=== PATIENT | female | born 1975 | race Caucasian/White ===

== ENCOUNTER 2017-05-09 15:51 | Emergency (ER) | payer OTHER ==
[~2017-05-09] VITALS: Ht 157.5 cm; Wt 49.9 kg
--- NOTE | 2017-05-09 16:22 | NUR ---
ER MD AT THE BEDSIDE FOR EVAL AND EXAM.
[2017-05-09] MEDS ORDERED: HYDROCODONE/APAP 5-325MG TABLET PO ONE (16:30)
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
[2017-05-09] MEDS ORDERED: CEFTRIAXONE 500 MG VIAL IM ONE (16:45)
[2017-05-09] MEDS ORDERED: DOXYCYCLINE HYCLATE 100 MG TABLET PO ONE (16:45)
[2017-05-09] MEDS ORDERED: HYDROCODONE/APAP 5-325MG TABLET ONE (16:48)
--- NOTE | 2017-05-09 16:56 | NUR ---
LORENA(FUNDER) AT THE BEDSIDE.
[2017-05-09] MEDS ORDERED: CEFTRIAXONE 500 MG VIAL ONE (17:00)
[2017-05-09] MEDS ORDERED: DOXYCYCLINE HYCLATE 100 MG TABLET ONE (17:00)
[2017-05-09] MEDS ORDERED: LIDOCAINE HCL 1% 20 ML VIAL ONE (17:00)
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
--- NOTE | 2017-05-09 17:09 | NUR ---
PT STATED, SHE DOSE NOT WANT TO TALK TO [employer] AND WISHES TO LEAVE.
[2017-05-09 17:11] VITALS: BP 110/81
--- NOTE | 2017-05-09 17:11 | NUR ---
Patient does not wish to proceed with medical care recommended by Dr. Hinton). Patient given information related to possible complications, up to and including , which could occur as a result of leaving the hospital at this time. Patient verbalizes understanding of risks involved due to leaving against medical advice. Patient has signed AMA form.
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
== END 2017-05-09 17:16 | disposition left against medical advice (07) ==
LOC: ER 15:52
DX: T74.11XA Adult physical abuse, confirmed, initial encounter (principal); R07.9 Chest pain, unspecified; R51 Headache; F32.9 Major depressive disorder, single episode, unspecified; Z59.0 Homelessness; Z88.8 Allergy status to other drugs, medicaments and biological substances; Y04.0XXA Assault by unarmed brawl or fight, initial encounter; Y93.89 Activity, other specified; Y92.89 Other specified places as the place of occurrence of the external cause; Y99.8 Other external cause status
CPT/HCPCS: 96372; 99283; A4663; J0696; J3490

== ENCOUNTER 2017-08-06 00:51 | Emergency (ER) | payer OTHER ==
[~2017-08-06] VITALS: Ht 157.5 cm; Wt 52.2 kg
[2017-08-06] MEDS ORDERED: ONDANSETRON ODT 4 MG TAB.RAPDIS SL ONE (02:00)
[2017-08-06] MEDS ORDERED: CEFTRIAXONE 500 MG VIAL IM ONE (02:00)
[2017-08-06] MEDS ORDERED: AZITHROMYCIN 250 MG TABLET PO ONE (02:00)
[2017-08-06] MEDS ORDERED: LIDOCAINE HCL 1% 20 ML VIAL ONE (02:10)
[2017-08-06] MEDS ORDERED: CEFTRIAXONE 500 MG VIAL ONE (02:11)
[2017-08-06] MEDS ORDERED: AZITHROMYCIN 250 MG TABLET ONE (02:11)
[2017-08-06] MEDS ORDERED: ONDANSETRON ODT 4 MG TAB.RAPDIS ONE (02:11)
[2017-08-06] MEDS ORDERED: IBUPROFEN 800 MG TABLET PO ONE (03:00)
[2017-08-06] MEDS ORDERED: IBUPROFEN 800 MG TABLET ONE (03:14)
[2017-08-06] MEDS ORDERED: HYDROCODONE/APAP 10-325 MG TABLET PO ONE (03:15)
[2017-08-06] MEDS ORDERED: HYDROCODONE/APAP 10-325 MG TABLET ONE (03:23)
--- NOTE | 2017-08-06 03:25 | NUR ---
Patient discharged to home in stable conditon. Written and verbal after care instructions given. Patient verbalizes understanding of instructions.
[2017-08-06 03:26] VITALS: BP 118/75
[2017-08-08 07:07] LABS: *GC NAA Negative (Negative); *TRIC.VAG. NAA Negative (Negative)
== END 2017-08-06 03:30 | disposition home or self-care (01) ==
LOC: ER 00:51
DX: M77.42 Metatarsalgia, left foot (principal); F15.10 Other stimulant abuse, uncomplicated; B19.20 Unspecified viral hepatitis C without hepatic coma; Z59.0 Homelessness; Z88.8 Allergy status to other drugs, medicaments and biological substances
CPT/HCPCS: 73560; 73630; 87491; 96372; 99285; A4663; J0696; J3490; Q0144; Q0162

== ENCOUNTER 2020-01-26 17:05 | Inpatient (IN) | payer SELFPAY ==
[~2020-01-26] VITALS: Ht 157.5 cm; Wt 71.7 kg
[2020-01-26] MEDS ORDERED: ONDANSETRON 4 MG/2 ML VIAL IV ONE (17:30)
[2020-01-26] MEDS ORDERED: IV NORMAL SALINE 1000 ML BAG IV ONE (17:30)
[2020-01-26] MEDS ORDERED: HYDROMORPHONE 1 MG/1 ML DISP.SYRIN IV ONE (17:30)
[2020-01-26] MEDS ORDERED: VANCOMYCIN IV 1,000 MG in IV DEXTROSE 5% 250 ML IV ONE (17:30)
[2020-01-26] MEDS ORDERED: HYDROMORPHONE 1 MG/1 ML DISP.SYRIN ONE (17:34)
[2020-01-26] MEDS ORDERED: VANCOMYCIN IV 200 ML ONE (17:34)
[2020-01-26] MEDS ORDERED: ONDANSETRON 4 MG/2 ML VIAL ONE (17:34)
--- NOTE | 2020-01-26 17:55 | NUR ---
PT is hard stick and LAB attempted to draw blood x3, pt uncooperative.
--- NOTE | 2020-01-26 18:00 | NUR ---
manufacturing quality technician able to draw blood, difficulty w/ blood CX, Dr Quintero discontinue blood CX, since pt not cooperative w/ care.
[2020-01-26 18:03] LABS: BASOPHILS % (AUTO) 0.2 % (0.0-2.0); EOSINOPHILS # (AUTO) 0.1 K/uL (0.0-0.7); EOSINOPHILS % (AUTO) 2.2 % (0.0-7.0); HEMATOCRIT 35.1 % (31.2-41.9); HEMOGLOBIN 11.6 g/dL (10.9-14.3); LYMPHOCYTES # (AUTO) 1.2 K/uL (20.0-40.0); LYMPHOCYTES % (AUTO) 17.9 % (20.5-51.5); MEAN CORPUSCULAR HEMOGLOBIN 31.3 uug (24.7-32.8); MEAN CORPUSCULAR HGB CONC 33 g/dL (32.3-35.6); MEAN CORPUSCULAR VOLUME 94.4 fL (75.5-95.3); MONOCYTES # (AUTO) 0.2 K/uL (2.0-10.0); MONOCYTES % (AUTO) 3.3 % (0.0-11.0); NEUTROPHILS % (AUTO) 76.4 % (38.5-71.5); PLATELET COUNT (AUTO) 282 K/uL (179-408); RED BLOOD CELL COUNT(AUTO) 3.71 MIL/uL (3.63-4.92); WHITE BLOOD COUNT (AUTO) 6.5 K/uL (3.8-11.8)
[2020-01-26 18:10] LABS: CREATININE 0.7 mg/dL (0.6-1.3); POTASSIUM 3.6 mmol/L (3.5-5.1)
[2020-01-26 18:16] LABS: BILIRUBIN,DIRECT 0.1 mg/dL (0.0-0.2); BILIRUBIN,TOTAL 0.1 mg/dL (0.2-1.0); TOTAL PROTEIN, SERUM 5.3 g/dL (6.4-8.2)
--- NOTE | 2020-01-26 19:01 | NUR ---
PT DENIES BEING ON ANY MEDS AT THE PRESENT TIME.
--- NOTE | 2020-01-26 19:20 | NUR ---
Assumed care for patient at this time. Noted with redness on upper extremities. Reported to MD that patient might be having allergic reaction.
[2020-01-26] MEDS ORDERED: diphenhydrAMINE 25 MG CAP PO ONE ×2 (19:30→19:32)
--- NOTE | 2020-01-26 19:50 | NUR ---
Redness noted, slowly improving at this time. Pt denies shortness of breath or difficulty of breathing.
--- NOTE | 2020-01-26 19:55 | NUR ---
Report given to Floor nurse/FIFI.
[2020-01-26] MEDS ORDERED: MAGNESIUM HYDROXIDE 30 ML LIQUID UDC PO PRN (20:15)
[2020-01-26] MEDS ORDERED: ACETAMINOPHEN 325 MG TABLET PO PRN (20:15)
[2020-01-26] MEDS ORDERED: ONDANSETRON 4 MG/2 ML VIAL IV PRN (20:15)
[2020-01-26] MEDS ORDERED: LORAZEPAM 2 MG/1 ML VIAL IV PRN (20:15)
--- NOTE | 2020-01-26 20:26 | NUR ---
Patient transported to [facility] floor, in stable condition via gurney.
[2020-01-26 20:30] VITALS: BP 108/69
--- NOTE | 2020-01-26 20:30 | NUR ---
Received patient alert and agitated. Patient shows no signs or symptoms of distress at this time. Patient agitated and is requesting for more pain medication and benedryl IV. Patient's vital signs stable- BP:108/69, Pulse:109, Respirations: 18, Temp: 98.5, O2- 100%. Dr. Lopez paged for orders. Awaiting response. Will continue to monitor patient.
--- NOTE | 2020-01-26 20:42 | NUR ---
PHARMACY NOTES ( VANCOMYCIN DOSING ) S: 44-year-old woman complaining of pain redness and swelling in the right hand. She claims that a "neighborhood dog" bit her 2 days ago and then the hand became progressively more painful red and swollen. MD ordered Vancomycin O: BUN/SCR 13/0.7, WBC 6.5, TEMP 98.2, T1/2 9.6 H, DOSING WT 72 KG A/P: pt received 1 dose of Vancomycin in ER @ 20:06 (dose # 1) will continue with Vancomycin 1 gm IVPB q11h , estimated peak of 35 trough of 17. Plan to order trough prior to 4th dose. Will continue to monitor renal fxn and levels when available and adjust dose if necessary.
[2020-01-26] MEDS: HYDROCODONE/APAP 5-325MG TABLET PO PRN (22:34)
[2020-01-26] MEDS: diphenhydrAMINE 50 MG/1 ML VIAL IV PRN (22:34)
--- NOTE | 2020-01-26 22:51 | NUR ---
Patient agitated and upset. Patient strongly refuses to do any sort of assessment. Patient states, "You're not a doctor so I don't have to talk to you. I will wait for the doctor in the morning." Explained risks and benefits and patient Addendum: 01/26/20 at 2327 by FIFI WELLS RN Patient still strongly refuses to have any assessment done. Will continue to monitor patient.
--- NOTE | 2020-01-26 23:00 | NUR ---
Pt refuses to have belongings checked. Explained to patient importance of having belongings checked but patient still strongly refuses at this time. Will continue to monitor patient.
--- NOTE | 2020-01-26 23:56 | NUR ---
Refuses assessment Addendum: 01/27/20 at 0037 by FIFI WELLS RN Amended: Links added.
--- NOTE | 2020-01-26 23:58 | NUR ---
Patient refuses all HEENT assessments. Addendum: 01/27/20 at 0037 by FIFI WELLS RN Amended: Links added.
--- NOTE | 2020-01-26 23:58 | NUR ---
Patient refuses assessment Addendum: 01/27/20 at 0037 by FIFI WELLS RN Amended: Links added.
--- NOTE | 2020-01-26 23:59 | NUR ---
Refuses skin assessment Addendum: 01/27/20 at 0037 by FIFI WELLS RN Amended: Links added.
--- NOTE | 2020-01-27 | NUR ---
Refuses auscultation of lungs Addendum: 01/27/20 at 0037 by FIFI WELLS RN Amended: Links added.
--- NOTE | 2020-01-27 00:01 | NUR ---
Refuses abdominal assessment. Addendum: 01/27/20 at 0037 by FIFI WELLS RN Amended: Links added.
--- NOTE | 2020-01-27 00:29 | NUR ---
Refuses to state support group Addendum: 01/27/20 at 0037 by FIFI WELLS RN Amended: Links added.
--- NOTE | 2020-01-27 00:33 | NUR ---
As per ED report, patient uses Heroin. During assessment, states states she does not abuse any substances. Addendum: 01/27/20 at 0037 by FIFI WELLS RN Amended: Links added.
[2020-01-27] MEDS: HYDROCODONE/APAP 5-325MG TABLET PO PRN ×2 (02:45→20:12)
[2020-01-27] MEDS: diphenhydrAMINE 50 MG/1 ML VIAL IV PRN (04:32)
[2020-01-27] MEDS: VANCOMYCIN IV 1,000 MG in IV DEXTROSE 5% 250 ML IV SCH ×2 (06:23→18:00)
[2020-01-27] MEDS ORDERED: PANTOPRAZOLE SODIUM 40 MG TABLET.DR PO SCH (07:00)
[2020-01-27 07:32] VITALS: BP 90/47
--- NOTE | 2020-01-27 07:38 | NUR ---
Patient shows no signs or symptoms of distress at this time. Patient is resting comfortably in bed. Patient endorsed to AM nurse in stable condition.
--- NOTE | 2020-01-27 09:00 | NUR ---
Refusing to keep saline lock in place. States burning feeling. Instructed that is because of saline flush. Refused to do belongings list. Requesting a different nurse. Instructed no assignment can be changed at this time. Very rude and abusive to staff.
--- NOTE | 2020-01-27 09:33 | NUR ---
PHARMACY NOTES ( VANCOMYCIN DOSING ) S: To continue vanco dosing for this 44-year-old woman complaining of pain redness and swelling in the right hand. She claims that a "neighborhood dog" bit her 2 days ago and then the hand became progressively more painful red and swollen. ordered Vancomycin O: BUN/SCR 13/0.7 (01/25), WBC 6.5 (01/25), TEMP 97.3 wt 72 kg ht 157 cm A/P: Will continue with Vancomycin 1 gm IVPB q11h for today. 2nd dose today at 1800. Plan to order trough prior to 4th dose (ordered for 01/27 at 1630). Pharmacy shall review the level when available & adjust the dose if needed. Will continue to monitor renal fxn and levels when available and adjust dose if necessary. Addendum: 01/27/20 at 0939 by ANTHONY DOW CORRECTION: TROUGH ORDERED ON 01/27 AT 1530
[2020-01-27 09:42] LABS: BASOPHILS % (AUTO) 0.2 % (0.0-2.0); EOSINOPHILS # (AUTO) 0.1 K/uL (0.0-0.7); EOSINOPHILS % (AUTO) 3.7 % (0.0-7.0); HEMATOCRIT 33.6 % (31.2-41.9); HEMOGLOBIN 10.9 g/dL (10.9-14.3); LYMPHOCYTES # (AUTO) 1.2 K/uL (20.0-40.0); LYMPHOCYTES % (AUTO) 31.9 % (20.5-51.5); MEAN CORPUSCULAR HEMOGLOBIN 30.6 uug (24.7-32.8); MEAN CORPUSCULAR HGB CONC 32 g/dL (32.3-35.6); MEAN CORPUSCULAR VOLUME 94.6 fL (75.5-95.3); MONOCYTES # (AUTO) 0.2 K/uL (2.0-10.0); MONOCYTES % (AUTO) 5.9 % (0.0-11.0); NEUTROPHILS # (AUTO) 2.3 K/uL (1.8-8.9); NEUTROPHILS % (AUTO) 58.3 % (38.5-71.5); PLATELET COUNT (AUTO) 266 K/uL (179-408); RED BLOOD CELL COUNT(AUTO) 3.55 MIL/uL (3.63-4.92); WHITE BLOOD COUNT (AUTO) 3.9 K/uL (3.8-11.8)
[2020-01-27 09:54] LABS: BILIRUBIN,TOTAL 0.2 mg/dL (0.2-1.0); CREATININE 0.7 mg/dL (0.6-1.3); MAGNESIUM 1.8 mg/dL (1.8-2.4); PHOSPHOROUS 3.7 mg/dL (2.5-4.9); POTASSIUM 3.8 mmol/L (3.5-5.1); TOTAL PROTEIN, SERUM 4.9 g/dL (6.4-8.2)
[2020-01-27 11:45] VITALS: BP 95/44
--- NOTE | 2020-01-27 12:00 | NUR ---
Patient dc'd her saline lock & threw it in the trash.
--- NOTE | 2020-01-27 14:30 | NUR ---
PATIENT REASSIGNMENT AT THIS TIME RECEIVED PATIENT IN BED AWAKE ALERT AND ORIENTED RIGHT HAND REMAINS SWOLLEN CONTINUE WITH ATB ORDERED NO S/S OF PAIN OR DISCOMFORTS AT THIS TIME CALL LIGHTS AND PERSONAL BELONGINGS ARE WITHIN EASY REACH MADE COMFORTABLE WILL CONTINUE TO OBSERVE
--- NOTE | 2020-01-27 17:10 | NUR ---
PATIENT HAS NO IV ACCESS AND INFORMED PATIENT THAT SHE NEEDED HEPLOCK INSERTED HER VANCO ATB WILL BE DUE AT 1800 BUT PATIENT BECAME ANGRY AND YELLING AT THIS WRITTER STATED THAT SHE DOES NOT THINK THAT I HAVE ENOUGH SKILLS TO INSERT HER IV VERY RUDE VERBALLY ABUSIVE AND INAPPROPRIATE MAKING IT IMPOSSIBLE TO REASON WITH HER SO I CALLED DEDRA DANIEL HIS PRACTITIONER AND LEFT HIM A MESSAGE THAT PATIENT HAS REFUSED TO HAVE HER HEPLOCK INSERTED AND SUCH I AM UNABLE TO GIVE HER THE VANCOMICIN ORDERED AWAITING FOR RETURN CALL.
[2020-01-27 17:19] VITALS: BP 98/50
--- NOTE | 2020-01-27 18:30 | NUR ---
SPOKE WITH DEDRA DANIEL STATED OKAY IF PATIENT REFUSES JUST DOCUMENT NO NEW ORDERS AT THIS TIME.
--- NOTE | 2020-01-27 19:45 | NUR ---
Received patient awake and agitated. Patient shows no signs or symptoms of distress at this time. Vital signs stable. Patient requesting for medication for breakthrough pain. Dr. Bandar Anderson notified. Awaiting response. Will continue to monitor patient.
--- NOTE | 2020-01-27 20:50 | NUR ---
Second message left with Dr. Anderson. Awaiting response.
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
--- NOTE | 2020-01-27 23:15 | NUR ---
[facility] medical group called and Dr. Savage is polymerization helper. Called and spoke to Dr. Savage and was notified that patient left AMA at 2039.
== END 2020-01-27 21:40 | disposition left against medical advice (07) | DRG 603 ==
LOC: ER 17:08 → MEDSURG3 20:07
PROVIDERS: ADMIT Hospitalist; ATTEND Hospitalist
DX: L03.113 Cellulitis of right upper limb (principal); E44.0 Moderate protein-calorie malnutrition; W54.0XXA Bitten by dog, initial encounter; F31.9 Bipolar disorder, unspecified; E88.09 Other disorders of plasma-protein metabolism, not elsewhere classified; Z68.28 Body mass index [BMI] 28.0-28.9, adult; F11.11 Opioid abuse, in remission; Y93.9 Activity, unspecified; M79.641 Pain in right hand; Y92.89 Other specified places as the place of occurrence of the external cause
CPT/HCPCS: 36415; 73120; 83605; 83690; 83735; 84100; 85025; A4663; G0378; J1170; J1200; J2405; J3370; J7030; J7050; J7060; Q0163

== ENCOUNTER 2024-07-09 03:25 | Emergency (ER) | payer MEDICAID, OTHER ==
[~2024-07-09] VITALS: Ht 157.5 cm; Wt 57.6 kg
[2024-07-09] MEDS ORDERED: ACETAMINOPHEN 500 MG TABLET PO ONE (05:45)
[2024-07-09] MEDS ORDERED: IBUPROFEN 400 MG TABLET ONE (05:53)
[2024-07-09] MEDS: IBUPROFEN 400 MG TABLET PO ONE (06:10)
[2024-07-09 09:04] VITALS: BP 119/81; O2SAT 100
== END 2024-07-09 09:06 | disposition home or self-care (01) ==
LOC: ER 03:35
DX: S93.491A Sprain of other ligament of right ankle, initial encounter (principal); S93.691A Other sprain of right foot, initial encounter; S70.12XA Contusion of left thigh, initial encounter; S40.021A Contusion of right upper arm, initial encounter; F31.9 Bipolar disorder, unspecified; V09.9XXA Pedestrian injured in unspecified transport accident, initial encounter; Y93.89 Activity, other specified; Y92.89 Other specified places as the place of occurrence of the external cause; Y99.8 Other external cause status
CPT/HCPCS: 73060; 73590; 73600; 73620; A4606; A4663